=== PATIENT | female | born 1945 | race Caucasian/White ===

== ENCOUNTER 2023-08-25 20:25 | Emergency (ER) | payer MEDICARE, SELFPAY ==
[2023-08-25 20:26] VITALS: BP 177/96; PULSE 110; RESP 16; TEMP 36.4; O2SAT 95; BMI 19.0
--- NOTE | 2023-08-25 21:40 | EX.ED.DYSGE1 ---
HPI History of Present Illness Chief Complaint: Rash Informant: patient and family Onset/Context/Timing Onset: Days (2) Context: Gradual Onset Timing: Continuous Quality: Burning, sharp Location: Right neck and shoulder Worsened by: Palpation Relieved by: Nothing Narrative Narrative: Patient presents with a rash on the right side of her neck that began 2 days ago. Patient states the rash is painful. Patient describes it as burning and stabbing. Patient states it is over the right side of her neck and into her right shoulder. Patient states it is worse with any palpation. Patient denies any fevers or chills. Patient denies any difficulty breathing or difficulty swallowing. Patient states the pain goes into her right ear. Patient denies any discharge or drainage. Patient denies any new soaps, laundry detergents, fabric softeners, or other new exposures. [facility] Medical History (Updated 08/25/23 @ 22:[address] Tuan Loving, DO) Blindness and low vision Home Medications ?Medication ?Instructions ?Recorded ?Last Taken ?Type valacyclovir 1 gram tablet 1,000 mg PO TID 7 days #21 tabs 08/25/23 Unknown Rx (Valtrex) Surgical History (Updated 08/25/23 @ 22:[address] Tuan Loving, DO) History of colon resection [facility] ED Constitutional Constitutional ED: Denies chills or fever(s) Eyes Eyes: Denies blurry vision or change in vision ENT ENT ED: Reports ear pain right; Denies rhinorrhea or sore throat Cardiovascular Cardiovascular: Denies chest pain or palpitations Respiratory/Chest Respiratory/Chest: Denies cough or dyspnea Gastrointestinal Gastrointestinal: Denies nausea or vomiting Genitourinary Genitourinary ED: Denies dysuria or hematuria Musculoskeletal Musculoskeletal: Reports neck pain; Denies back pain Integumentary Reports rash; Denies abscess Neurologic Neurologic: Reports headache(s); Denies weakness Allergic/Immunologic Allergic/Immunologic ED: Denies mouth swelling or urticaria EXAM Physical Exam Const Vital Signs: 08/25/23 20:26 Temperature 97.6 F L Temperature Source Temporal Pulse Rate 110 H Respiratory Rate 16 Blood Pressure 177/96 H Blood Pressure Mean 123 Pulse Ox 95 Oxygen Delivery Method Room Air Positive well nourished and well developed General Appearance ED: well developed and NAD HEENT Reports TM's clear and moist mucous membranes Tympanic Membrane ED: Yes TM's clear bilateral Neck supple and no JVD Neuro oriented x3, CN's II-XII intact bilaterally and no sensory deficits noted Sensorium / Orientation: alert Motor Exam: strength 5/5 throughout Psych mental status grossly normal Skin Skin Narrative: There is an erythematous macular rash over the right side of the neck and shoulder along the C4 and C5 dermatomes. There are small vesicles noted. There is no discharge or drainage noted. There is no crusting noted. MDM MDM MDM Narrative Medical decision making narrative: Patient and family were advised that this is most likely shingles. Patient was given a dose of acyclovir. Patient was given a prescription for Valtrex. Patient was instructed to follow-up with a primary care physician in 5 to 7 days for reevaluation. Patient and family understood and were agreeable with the plan. All questions were answered. Discharge Plan Triage Chief Complaint: Rash ED Provider: Tuan Loving Dx/Rx/DC Orders Clinical Impression: Varicella zoster, Tobacco use disorder, Elevated blood pressure reading without diagnosis of hypertension Instructions: ED Shingles (Herpes Zoster) Prescriptions: New valacyclovir [Valtrex] 1 gram tablet 1,000 mg PO TID 7 Days Qty: 21 0RF Print Language: Tamazight Disposition Disposition: Home, Self Care
[2023-08-25 22:26] VITALS: BP 155/88; PULSE 93; RESP 18; O2SAT 98
[2023-08-25 22:52] VITALS: BP 155/88; PULSE 93; RESP 18; TEMP 36.4; O2SAT 98
[2023-08-25] MEDS: Acyclovir 800 MG Tablet PO (23:01)
== END 2023-08-25 23:03 | disposition home or self-care (01) ==
PROVIDERS: Emergency Provider Emergency Medicine; Visit Provider Emergency Medicine
DX: B02.9 Zoster without complications (principal); R03.0 Elevated blood-pressure reading, without diagnosis of hypertension
CPT/HCPCS: 99282